=== PATIENT | female | born 1950 | race African-American/Black ===

== ENCOUNTER → 2017-04-19 | Outpatient (CLI) | payer OTHER ==
[~2017-04-19] MED LIST: ADVIL200 M3 PO; ALEVE220 M1 PO; OLMSRTN-AMLDPN1 EAC2 PO; PREMARIN1.25 MG PO; TRAMADOL HCL50 M1 PO; TRIBENZOR 40-51 EAC1 PO; ZOLOFT100 MG PO
--- NOTE | ~2017-04-19 | EKG ---
PATIENT: SHAUNA MOREAU UNIT #: [id number] Ventricular Rate: 55 BPM Atrial Rate: 55 BPM P-R Interval: 132 ms QRS Duration: 80 ms Q-T Interval: 412 ms QTC Calculation(Bezet): 394 ms P [place]: 34 degrees Calculated R [place]: 9 degrees Calculated T [place]: 24 degrees Diagnosis Line: Sinus bradycardia Diagnosis Line: Otherwise normal ECG Diagnosis Line: When compared with ECG of 08-MAR-2015 08:54, Diagnosis Line: No significant change was found Diagnosis Line: Confirmed by MADHAV VILLANUEVA MD ([id number]) on Diagnosis Line: 04/19/2017 3:25:56 PM INTERPRETING MD: RICH HOPE
== END | disposition home or self-care (01) ==
LOC: CAMB 13:49
DX: Z01.818 Encounter for other preprocedural examination (principal); T85.598A Other mechanical complication of other gastrointestinal prosthetic devices, implants and grafts, initial encounter
CPT/HCPCS: 36415; 80048; 93005

== ENCOUNTER → 2017-04-21 | Day surgery (SDC) | payer OTHER ==
[2017-04-19 15:46] LABS: CREATININE SERUM 0.9 mg/dL (0.6-1.4); GLOM FILT RATE Estimated 77.3 mL/min (>60); POTASSIUM 3.9 mmol/L (3.5-5.1)
--- NOTE | ~2017-04-21 | OR ---
Unit #: [id number] #: [id number] Patient: SHAUNA MOREAU [id number] [address] [address] [id number] O MR#: [id number] NAME: SHAUNA MOREAU ROOM: Date of Procedure: 04/21/2017 Admission Date: 04/21/2017 Surgeon: Prakash Cordero M.D. : 1950 Attending Physician: Prakash Cordero M.D. Primary Care Physician: Monet Weldon M.D. OPERATIVE REPORT PREOPERATIVE DIAGNOSIS Laparoscopic adjustable gastric band leak. POSTOPERATIVE DIAGNOSIS Partial transection of laparoscopic adjustable gastric band tubing. PROCEDURE PERFORMED Laparoscopic adjustable gastric band port revision with replacement of band port. ASSISTANT Keanu Daniel M.D. ANESTHESIA General. ESTIMATED BLOOD LOSS Minimal. IV FLUIDS 500 crystalloid. COMPLICATIONS None. INDICATIONS FOR PROCEDURE The patient is a 67-year-old lady, who presents with Lap-Band and doing very well. I accessed her port last time and did not get fluid back. I did not hold fluid. She presents for operative intervention. DESCRIPTION OF PROCEDURE The patient was taken to the operating theater and placed in supine position. General anesthesia was induced. Her abdomen was prepped and draped. An incision was then made over previous port site incision. This was taken down to the port. Port was then mobilized and brought it transcutaneous. I injected the port and identified immediately a partial transection of the tubing below the fascia level. This was cut and a new port placed. I then tested the port for watertight and left 2 mL within the system. This was then sutured to a mesh with an Ethibond and then placed into a subcutaneous tunnel and the fascia. I irrigated with saline and closed with 4-0 Vicryl. The patient tolerated the procedure well and sent to recovery room in good condition. Unit #: [id number] #: [id number] Patient: SHAUNA MOREAU Dictated by... Joslyn Hidalgo/juan TD: 04/23/2017 09:00 JOB #: [id number] OPERATIVE REPORT Page 1 of 1 X Prakash Cordero MD PROCEDURE OPERATIVE NOTE
== END | disposition home or self-care (01) ==
LOC: CSUR 09:18
PROVIDERS: Surgery
DX: K95.09 Other complications of gastric band procedure (principal); M17.9 Osteoarthritis of knee, unspecified; I10 Essential (primary) hypertension; E78.5 Hyperlipidemia, unspecified; E66.01 Morbid (severe) obesity due to excess calories; G47.30 Sleep apnea, unspecified; Z88.5 Allergy status to narcotic agent; Z88.8 Allergy status to other drugs, medicaments and biological substances; Z91.013 Allergy to seafood; Z91.041 Radiographic dye allergy status; Z68.41 Body mass index [BMI] 40.0-44.9, adult; Z98.41 Cataract extraction status, right eye; Z98.42 Cataract extraction status, left eye; Z96.1 Presence of intraocular lens; Z98.51 Tubal ligation status; Z90.710 Acquired absence of both cervix and uterus; Z98.890 Other specified postprocedural states; Y83.8 Other surgical procedures as the cause of abnormal reaction of the patient, or of later complication, without mention of misadventure at the time of the procedure
CPT/HCPCS: 36415; 80048; C1781; J0330; J0690; J1100; J1885; J2250; J2405; J2710; J3010